=== PATIENT | female | born 1955 | race Caucasian/White ===

== ENCOUNTER 2023-08-24 14:31 | Emergency (ER) | payer MEDICARE, OTHER, SELFPAY ==
[2023-08-24 14:37] VITALS: BP 178/95
[2023-08-24 15:26] VITALS: BMI 47.1
--- NOTE | 2023-08-24 16:02 | ED.GENMED ---
History of Present Illness
General
Chief Complaint: DVT/Possible Blood Clot
Source: patient
Exam Limitations: none
Time Seen by Provider: 08/24/23 15:20
Nursing documentation reviewed up to this point in time: agreed with
Travel History
Have you had any contact with someone who has COVID-19?: No
Do you have any symptoms of coronavirus? Fever > 100 degrees, chills, cough, shortness of breath, sore throat, loss of taste or smell, muscle aches, or headache?: No
History of Present Illness
History of Present Illness:
68 y/o F with no sig pmh
here with R leg swelling and pain x 1 week
just traveled to and from [place] and [place] for a 21 day trip and flew a few times
she has never had dvt before
denies chest pain, shortness of breath, fever, chills, umbness/tingling/weakness in the foott, foot drop, color change in the leg
no wounds.
flew home 2 days ago.
Phy Exam
Physical Exam
Physical Exam:
GENERAL: Alert , in no apparent distress, comfortable at rest
HEAD: NCAT
CV: 2+ DP PULSES B/L
No tachycardia, no murmur
Lungs clear
NEUROLOGICAL: Alert and oriented, no focal neuro deficits, , 5/5 strength, sensation intact, ambulation steady
SKIN: Warm and dry, no skin changes
MUSCULOSKELETAL right calf is mild to moderately swollen compared to the left, there is no pitting edema, there is no skin changes, she has a normal DP pulse, normal sensation and strength, she has mild tenderness to palpation consistent with a
Homans' sign, she has full range of motion of her knee and hip, no appreciated swelling in the thigh
PSYCH: Normal and appropriate interaction.
Course
Orders/Labs/Results
Orders:
Orders
08/24/23 14:42
US Legs, Right [US Periph Venous LOWER Ext RT] Urgent
Comment:
Reason For Exam: swelling and pain
08/24/23 16:42
Complete Blood Count/With Diff Urgent
Comprehensive Metabolic Panel Urgent
PTT Urgent
Prothrombin Time Urgent
08/24/23 17:01
Rivaroxaban [Xarelto] 15 mg PO NOW STA
Abnormal Lab Results
08/24/23
16:42
MPV 11.5 H fL
(7.4-10.4)
Chloride 108 H mmol/L
(98-107)
BUN 20 H mg/dl
(7-17)
08/24/23 16:42
08/24/23 16:42
Vital Signs
Initial and Last Documented VS:
Initial Vital Signs
Temp Pulse Resp BP Pulse Ox
97.9 F 81 16 178/95 99
08/24/23 14:37 08/24/23 14:37 08/24/23 14:37 08/24/23 14:37 08/24/23 14:37
Last Documented Vital Signs
Temp Pulse Resp BP Pulse Ox
97.9 F 71 16 178/88 98
08/24/23 14:37 08/24/23 16:56 08/24/23 14:37 08/24/23 17:21 08/24/23 16:56
MDM/Problems Addressed
Differential Diagnosis Includes:
DVT, peripheral edema
MDM/Problems Addressed:
68-year-old female with no medical problems presents for painful right calf swelling [place] 2 [place] ago and has mild to moderate swelling in her calf with some discomfort. There is no
numbness tingling or weakness or foot drop. She has no paresthesias. There is no color change. She is not having any subjective shortness of breath or chest pain. On exam she is not tachycardic, has a normal pulse ox, has moderate swelling of
her right calf with normal neurovascular status, full range of motion of the joints. There is no foot drop. She has a soft compartment.
Ultrasound shows a nonocclusive thrombus in the mid right femoral vein and occlusive thrombus within the distal right femoral vein right popliteal vein and proximal right peroneal and posterior tibial veins. The proximal right femoral vein is patent
Patient has never had a previous DVT or PE
I consulted social work regarding choice of Eliquis or Xarelto based on the patient's insurance co-pay.
Screening labs to evaluate for chronic kidney disease so I can renally adjust the dose if necessary
will dose with xarelto which is much more reasonably prcied;
d?c home
*Critical Care Note
Total Time (30-74mins, 75-104mins- exclusive of procedures): Not Applicable
ED Attending Note
-
Portions of this chart may have been created with voice recognition software.� Occasional wrong word or��sound alike� substitutions may have occurred due to the inherent limitations of voice recognition software.
Discharge Plan
Departure
Patient Disposition: Home (Routine Discharge)
Date of Disposition: 08/24/23
Time of Disposition: 17:02
Patient with high blood pressure during this ER visit?: Yes
Condition: Fair
Covid-19: Not Applicable
Discharge Problem:
Acute deep vein thrombosis (DVT) of femoral vein of right lower extremity
Instructions: Deep Vein Thrombosis (Blood Clots in the Legs) (DC), BLOOD PRESSURE
Prescriptions:
New
Xarelto DVT-PE Treat 30d Start 15 mg (42)- 20 mg (9) tablets,dose pack
See Rx Instructions .ROUTE .COMPLEX Qty: 51 0RF
Rx Instructions:
15 MG PO BID X 21 DAYS THEN 20 MG DAILY FOR REMAINDER
Referrals:
Keira Mcbride MD [Family Provider] - Follow up in 2-3 days
Activity Restrictions/Additional Instructions:
YOUR ULTRASOUND SHOWED A CLOT IN YOUR DISTAL FEMORAL AND PERONEAL AND POPLITEAL AND POSTERIOR TIBIAL VEINS
THIS IS A DEEP VENOUS CLOT
TAKE XARELTO TWICE A DAY FOR 21 DAYS AND THEN ONCE A DAY FOR THE REMAINDER
YOU SHOULD SEE YOUR DOCTOR THIS WEEK FOR FURHTER PRESCRIPTIONS FOR XARELTO
RETURN FO R: CHEST PAIN, SHORTNESS OF BREATH, PASSING OUT, LEG WEAKNESS OR NUMBNESS, SKIN COLOR CHANGE IN LEG OR ANY CONCERNS RETURN.
YOUR BLOOD PRESSURE WAS ELEVATED
BE SURE TO HAVE THIS RECHECKED
Interventions
Interventions:
*Risk Screen - Suicide Last Done: 08/24/23 14:37
*General Assessment Last Done: 08/24/23 14:37
*Neglect/Abuse Screening Last Done: 08/24/23 14:37
ED- Fall Risk Assessment Last Done: 08/24/23 17:21
*ED COVID-19 Vaccine History Last Done: 08/24/23 17:21
*Nursing Disposition Last Done: 08/24/23 17:21
ED- Cardiac Assessment Last Done: 08/24/23 15:33
ED- Pulmonary Assessment Last Done: 08/24/23 15:33
ED-Skin Assessment Last Done: 08/24/23 15:33
Discharge Date and Time
Discharge Date/Time: 08/24/23 17:22
[2023-08-24 16:49] LABS: % Basophils 0.5 % (0-2); % Eosinophils 2.5 % (0-6); % Immature Granulocytes 0.3 % (0-0.5); % Lymphocytes 23.9 % (20.5-51.1); % Monocytes 5.3 % (1.7-9.3); % Neutrophils 67.5 % (42.2-75.2); Absolute Eosinophils 0.2 10^3/uL (0-0.7); Absolute Lymphocytes 1.5 10^3/uL (1.2-3.4); Absolute Monocytes 0.3 10^3/uL (0.1-0.6); Absolute Neutrophils 4.3 10^3/uL (1.4-6.5); Hematocrit 42.3 % (37.0-47.0); Mean Corp Hgb Conc. 33.1 g/dL (33.0-37.0); Mean Corpuscular Hgb 30.7 pg (27.0-31.0); Mean Corpuscular Volume 92.8 fL (81.0-99.0); Mean Platelet Volume 11.5 fL (7.4-10.4); Nucleated Red Blood Cells % 0 %; Platelet Count 159 10^3/uL (130-400); Red Blood Cell Count 4.56 10^6/uL (4.20-5.40); Red Cell Dist. Width 13.5 % (11.5-14.5); White Blood Cell Count 6.4 10^3/uL (4.8-10.8)
[2023-08-24 16:56] VITALS: BP 180/108
[2023-08-24 16:59] LABS: INR 0.99; PT 12.9 Sec (11.4-14.6)
[2023-08-24 17:00] LABS: ALT (SGPT) 32 U/L (0-35); APTT 25.9 Sec (23.4-35.0); AST (SGOT) 32 U/L (14-36); Albumin 3.9 g/dl (3.5-5.0); Alkaline Phosphatase 65 U/L (38-126); Blood Urea Nitrogen 20 mg/dl (7-17); Calcium 8.9 mg/dl (8.4-10.2); Carbon Dioxide 26 mmol/L (22-30); Chloride 108 mmol/L (98-107); Estimated Creatinine Clearance 97 ml/min; Glucose 97 mg/dl (70-99); Potassium 4.2 mmol/L (3.5-5.1); Sodium 137 mmol/L (135-145); Total Bilirubin 0.5 mg/dl (0.2-1.3); Total Protein 6.6 g/dl (6.3-8.2); eGFR > 60.00
--- NOTE | 2023-08-24 17:01 | CM ---
CM was consulted for DOAC ramirez check. CM called patient's pharmacy:
Eliquis $550
Xarelto $135
Patient updated . Patient provided with Xarelto coupons and patient education material.
[2023-08-24] MEDS: XARELTO 15 MG PO (17:11)
[2023-08-24 17:21] VITALS: BP 178/88
== END 2023-08-24 17:22 | disposition home or self-care (01) ==
LOC: EMR 14:31
PROVIDERS: Physician Assistant; EMERGENCY PHYSICIAN Emergency Medicine; FAMILY PHYSICIAN Family Medicine
DX: I82.411 Acute embolism and thrombosis of right femoral vein (principal); R03.0 Elevated blood-pressure reading, without diagnosis of hypertension; Z85.820 Personal history of malignant melanoma of skin; Z88.0 Allergy status to penicillin; Z88.2 Allergy status to sulfonamides; Z91.048 Other nonmedicinal substance allergy status
CPT/HCPCS: 99284; 80053; 85025; 85610; 85730; 93971

== ENCOUNTER → 2023-11-24 15:53 | Outpatient (REF) | payer MEDICARE, OTHER, SELFPAY | LOC: RAD 15:53 | PROVIDERS: ATTENDING PHYSICIAN Internal Medicine Hematology & Oncology; FAMILY PHYSICIAN Family Medicine | DX: I82.401 Acute embolism and thrombosis of unspecified deep veins of right lower extremity (principal); R22.41 Localized swelling, mass and lump, right lower limb | CPT/HCPCS: 93971 ==

== ENCOUNTER → 2024-04-05 12:08 | Outpatient (REF) | payer MEDICARE, OTHER, SELFPAY | LOC: WDC 12:08 | PROVIDERS: ATTENDING PHYSICIAN Obstetrics & Gynecology Gynecology; FAMILY PHYSICIAN Family Medicine | DX: Z12.31 Encounter for screening mammogram for malignant neoplasm of breast (principal) | CPT/HCPCS: 77063; 77067 ==

== ENCOUNTER → 2024-12-16 13:38 | Outpatient (REF) | payer MEDICARE, OTHER, SELFPAY | LOC: RAD 13:38 | PROVIDERS: ATTENDING PHYSICIAN Obstetrics & Gynecology Gynecology; FAMILY PHYSICIAN Family Medicine | DX: N95.0 Postmenopausal bleeding (principal) | CPT/HCPCS: 76830; 76856 ==

== ENCOUNTER → 2025-03-07 13:38 | Outpatient (REF) | payer MEDICARE, OTHER, SELFPAY ==
[2025-03-07 14:29] LABS: Hematocrit 43.4 % (37.0-47.0); Hemoglobin 14.0 g/dL (12.0-16.0); Mean Corp Hgb Conc. 32.3 g/dL (33.0-37.0); Mean Corpuscular Volume 96.9 fL (81.0-99.0); Nucleated Red Blood Cells % 0 %; Platelet Count 165 10^3/uL (130-400); Red Cell Dist. Width 13.1 % (11.5-14.5)
== END ==
LOC: SDSPAT 13:38
PROVIDERS: ATTENDING PHYSICIAN Obstetrics & Gynecology Gynecology; FAMILY PHYSICIAN Family Medicine
DX: Z01.818 Encounter for other preprocedural examination (principal)
CPT/HCPCS: 36415; 85025; 93005

== ENCOUNTER 2025-03-11 06:07 | Day surgery (SDC) | payer MEDICARE, OTHER, SELFPAY ==
[2025-03-07 14:00] VITALS: BMI 44.9
[2025-03-11] VITALS (9 sets, daily range): BP systolic 104–160; BP diastolic 61–88; BMI 44.9
[2025-03-11] MEDS: NORMOSOL-R/PLASMALYTE-A 1000 IV (08:52)
[2025-03-11] MEDS: VIBRAMYCIN 260 MG IV (08:52)
[2025-03-11] MEDS: DILAUDID 0.25 MG IV (10:18)
== END 2025-03-11 11:27 | disposition home or self-care (01) ==
LOC: SDS 06:07
PROVIDERS: ATTENDING PHYSICIAN Obstetrics & Gynecology Gynecology; FAMILY PHYSICIAN Family Medicine
DX: N85.02 Endometrial intraepithelial neoplasia [EIN] (principal); N95.0 Postmenopausal bleeding
CPT/HCPCS: 58558; 88305

== ENCOUNTER → 2025-05-25 11:50 | Outpatient (REF) | payer MEDICARE, OTHER, SELFPAY | LOC: WDC 11:50 | PROVIDERS: ATTENDING PHYSICIAN Family Medicine | DX: Z12.31 Encounter for screening mammogram for malignant neoplasm of breast (principal) | CPT/HCPCS: 77063; 77067 ==